=== PATIENT | female | born 1970 | race Caucasian/White ===

== ENCOUNTER → 2021-01-13 11:10 | Outpatient (BNVA) | payer MEDICAID, SELFPAY | PROVIDERS: Visit Provider Obstetrics & Gynecology | DX: R68.82 Decreased libido (principal) | CPT/HCPCS: 84402 ==

== ENCOUNTER → 2021-01-22 00:01 | Outpatient (BNVA) | payer MEDICAID, SELFPAY | PROVIDERS: Visit Provider Obstetrics & Gynecology | DX: R68.82 Decreased libido (principal) | CPT/HCPCS: 84403 ==

== ENCOUNTER 2021-03-03 14:50 | Outpatient (CLI) | payer MEDICAID, SELFPAY ==
--- NOTE | 2021-03-03 14:55 | MM_ITS ---
WS: [id number] BILATERAL SCREENING DIGITAL MAMMOGRAM WITH CAD HISTORY: SCREENING COMPARISON: 12/01/2015 Bilateral CC and MLO views submitted. Computer aided detection analyzed. Breast composition: There are scattered areas of fibroglandular density. No suspicious masses, microc alcifications or architectural distortion. Vascular calcifications in each breast. MM/[place] [id number] IMPRESSION: BI-RADS: 2-Benign FOLLOW UP: 1 Year Follow-up
== END 2021-03-03 14:51 | disposition home or self-care (01) ==
LOC: RADSHAW 14:52
PROVIDERS: PCP Nurse Practitioner Family; Visit Provider Nurse Practitioner Family
DX: Z12.31 Encounter for screening mammogram for malignant neoplasm of breast (principal)
CPT/HCPCS: 77067

== ENCOUNTER → 2021-05-12 09:09 | Outpatient (BNVA) | payer MEDICAID, SELFPAY | PROVIDERS: PCP Nurse Practitioner Family; Referring Provider Nurse Practitioner Family; Visit Provider Podiatrist Foot & Ankle Surgery | DX: M79.672 Pain in left foot (principal); M19.072 Primary osteoarthritis, left ankle and foot; E11.42 Type 2 diabetes mellitus with diabetic polyneuropathy | CPT/HCPCS: 73630 ==

== ENCOUNTER 2021-07-30 14:31 | Emergency (ER) | payer MEDICAID, SELFPAY ==
[2021-07-30 14:46] VITALS: BP 169/105; PULSE 99; RESP 16; TEMP 36.8; O2SAT 97
--- NOTE | 2021-07-30 14:50 | XR_ITS ---
WS: [id number] Portable AP upright chest, 07/30/2021 Clinical Data: chest pain Comparison: None. Findings: No nodules, masses or effusions are seen. The heart is normal. The pulmonary vascularity is not increased. No pneumonia or pneumothorax is seen. XR/XR chest 1V portable [id number] Impression: Negative chest.
--- NOTE | 2021-07-30 14:51 | ECG_ITS ---
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 Measurements Intervals [place] Rate: 94 P: 47 [place]: 142 QRS: -45 QRSD: 93 T: 41 QT: 334 QTc: 418 Interpretive Statements SINUS RHYTHM LOW QRS VOLTAGE IN PRECORDIAL LEADS [QRS DEFLECTION < 1.0 mV IN CHEST LEADS] INCOMPLETE RIGHT BUNDLE BRANCH BLOCK [90+ ms QRS DURATION, TERMINAL R IN V1/V2, 40+ ms S IN I/aVL/V4/V5/V6] INFERIOR MYOCARDIAL INFARCTION , PROBABLY OLD [40+ ms Q WAVE AND/OR ST/T ABNORMALITY IN II/aVF] PROBABLE ANTEROLATERAL MYOCARDIAL INFARCTION , PROBABLY OLD [35 ms Q WAVE IN I/aVL/V3-V6] INTERPRETATION BASED ON A DEFAULT AGE OF 40 YEARS No previous ECG available for comparison Electronically Signed On 07-30-2021 17:07:19 CDT by Ehsan Levin M.D. [email or web address], [id number] atilio
--- NOTE | 2021-07-30 15:05 | W.ED.CHESTPA ---
Documented by User: ISAEL Rowan 07/30/21 16:52 HPI - Chest Pain General: Chief Complaint: Chest Pain Stated Complaint: CP, PAIN IN JAW/BACK, SOB Time Seen by Provider: 07/30/21 14:50 Source: patient Mode of arrival: ambulatory Limitations: no limitations History of Present Illness: HPI narrative: Patient is a pleasant 51-year-old female who presents to ED today with complaints of progressively worsening exertional chest pain and shortness of breath. Patient states she began noticing symptoms approximately 2 to 3 months ago. She was seen by primary care and given a prescription for nitroglycerin and scheduled for a stress test however this has not been completed. Patient tells me her symptoms are continuing to worsen to the point where she is having to stop and rest just with checking the mail. She tells me when she begins having symptoms they are only alleviated by taking nitroglycerin. She states symptoms are almost always brought on by exertion. She states pain is substernal with radiation into her left shoulder, arm, back, and left neck/jaw. 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 She is complaining of lower leg swelling. She complains of orthopnea and PND. Patient states she has had a stress test and angiogram years and years ago which showed 2 leaky valves . She reports no previous history of ID/cardiac stenting. She has no history of COPD. Patient is a former smoker-quit in 1989. complaint: chest pain Onset (ago): month(s) Timing of current episode: episodic and increasing Prior episodes: Yes Onset: during exertion Pain location: substernal Pain radiation: left arm, back, neck, jaw/teeth and left shoulder Quality: tightness Relieving factors: nitroglycerin Exacerbating factors: exertion Associated symptoms: Reports dyspnea and palpitations; Deny abdominal pain, fever(s), nausea, syncope or vomiting Risk Factors: Coronary artery disease risk factors: smoking history (quit 30 years ago) and hypertension Pulmonary embolism risk factors: oral contracepetive use (patient is on conjugated estrogens for decreased libido ) Review of Systems Const: Denies: fever(s), chills, body aches, fatigue or malaise Eyes: Denies: change in vision Card: Reports: chest pain, palpitations, edema, swelling of feet/ankles, dyspnea on exertion and orthopnea; Denies: irregular heart rhythm, lightheadedness, syncope, pre-syncope, leg pain with exertion or acrocyanosis Resp: Reports: dyspnea; Denies: productive cough, non-productive cough, wheezing, hemoptysis or chest congestion GI: Denies: abdominal pain, nausea, vomiting or diarrhea Musc: Denies: neck pain, back pain, extremity pain or joint pain Skin/Breast: Denies: rash Neuro: Denies: headache(s), numbness in extremities, weakness in extremities, sensory changes, difficulty walking or dizziness PFS ED PFSH: Medical History DM (diabetes mellitus) Primary osteoarthritis of left knee Family History Father Alcohol abuse age 55-- Sister Breast cancer x2 Diabetes type 1 Grandmother Breast cancer Maternal Family/Other Breast cancer x2 maternal aunts Brother Diabetes Father Hyperlipidemia Hypertension Mother Hypotension Denies family history of CAD (coronary artery disease) Clotting disorder Dementia Psychiatric illness Chronic kidney disease (CKD) Suicide Anesthesia complication Bleeding disorder Family history of premature coronary artery disease Lung disease Cancer Stroke Social History Smoking and tobacco status: former smoker (quit in 1989) Alcohol intake: never Physical Exam Const: COMMON NORMALS: no acute distress, patient oriented x3, no limitations and alert GENERAL APPEARANCE: cooperative NUTRITIONAL APPEARANCE: overweight ORIENTATION/CONSCIOUSNESS: Yes awake, Yes oriented to person, Yes oriented to place and Yes oriented to time HENMT: COMMON NORMALS: normocephalic and atraumatic HEAD & SCALP: normocephalic and atraumatic Neck/C-Spine: COMMON NORMALS: full ROM Chest: COMMONS NORMALS: normal inspection of the chest and normal palpation of entire chest wall Resp: COMMON NORMALS: normal respiratory effort and clear to auscultation bilaterally AUSCULTATION: clear to auscultation bilaterally Cardio: COMMON NORMALS: regular rate and regular rhythm RATE: regular rate RHYTHM: regular rhythm Extremity: NARRATIVE EXTREMITY EXAM: mild non-pitting LE edema; no calf swelling or obvious tenderness/negative Roro's GENERAL: Yes normal exam except as noted Neuro: COMMON NORMALS: patient oriented x3 SENSORIUM/ORIENTATION: Yes alert, Yes oriented to person, Yes oriented to place and Yes oriented to time Skin: COMMON NORMALS: no rashes or lesions noted GENERAL SKIN EXAM: no rashes or lesions noted Course Consultations: Consultation #1: Dr. Smith-accepts admission Vital Signs: Vital signs: Vital Signs Temperature 98.2 F 07/30/21 14:46 Pulse Rate 99 07/30/21 14:46 Respiratory Rate 16 07/30/21 14:46 Blood Pressure 169/105 07/30/21 14:46 Pulse Oximetry 97 07/30/21 14:46 MDM - Chest Pain MDM Narrative: Medical decision making narrative: Patient's history is highly suspicious. Her baseline trop is normal. EKG w/o obvious ischemic changes. BNP normal. CXR normal. Did order d-dimer secondray to profound SOB with minimal exertion and this was elevated so CTA obtained which was normal. Due to patient's progressively worsening symptoms and the high suspicion, I think hospitalization is appropriate. Spoke to Dr. Vergara who agrees. I spoke with Dr. Smith who will admit. Lab Data: Labs: Lab Results 07/30/21 07/30/21 07/30/21 15:10 15:10 15:10 WBC 10.9 10^3/uL H 10 ^3/uL (4.0-10.0) RBC 4.78 10^6/uL 10^6 /uL (4.1-5.3) Hgb 13.9 g/dL g/dL (11.5-15.3) Hct 41.5 % % (37.0-47.0) MCV 86.8 fl fl (81-99) MCH 29.1 pg pg (28.0-34.0) MCHC 33.5 g/dL g/dL (30.0-36.0) RDW 12.8 % % (12.1-15.1) Plt Count 286 10^3/cmm 10^3 /cmm (130-400) MPV 11.3 fL H fL (7.4-10.4) Neut % (Auto) 60.1 % % Lymph % (Auto) 27.8 % % [place] % (Auto) 9.3 % % Eos % (Auto) 1.7 % % Baso % (Auto) 0.7 % % Neut # (Auto) 6.52 10^3/uL 10^3 /uL (1.8-7.7) Lymph # (Auto) 3.0 10^3/uL 10^3/ uL (0.8-4.8) [place] # (Auto) 1.0 10^3/uL H 10^ 3/uL (0.2-0.9) Eos # (Auto) 0.2 10^3/uL 10^3/ uL (0.0-0.8) Baso # (Auto) 0.1 10^3/uL 10^3/ uL (0.0-0.1) Nucleated RBC % (a uto) 0 % % Nucleated RBCs # 0.0 /100WBC /100W BC D-Dimer Sodium 138 mmol/L mmol/L (136-145) Potassium 3.9 mmol/L mmol/L (3.5-5.1) Chloride 103 mmol/L mmol/L (98-107) Carbon Dioxide 22 mmol/L mmol/L (22-29) Anion Gap 16.9 (5-19) BUN 10 mg/dL mg/dL (6-20) Creatinine 0.5 mg/dL mg/dL (0.5-0.9) GFR Calculation 131.1 mL/min H mL /min (90-130) Glucose 117 mg/dL H mg/dL (65-115) Calculated Osmolal ity 286 mOsm/kg mOsm/ kg (285-295) Calcium 9.1 mg/dL mg/dL (8.5-10.5) Total Bilirubin 0.5 mg/dL mg/dL (0.15-1.2) AST 26 U/L U/L (0-32) ALT 37 U/L H U/L (0-33) Alkaline Phosphata se 162 IU/L H IU/L (35-105) Troponin T Baselin e 8 ng/L ng/L (0-10) NT-Pro-B Natriuret Pep 18 pg/mL pg/mL (0-125) Total Protein 6.8 g/dL g/dL (6.6-8.7) Albumin 4.3 g/dL g/dL (3.5-5.2) Globulin 2.5 g/dL g/dL (1.3-4.6) 07/30/21 15:10 WBC RBC Hgb Hct MCV MCH MCHC RDW Plt Count MPV Neut % (Auto) Lymph % (Auto) [place] % (Auto) Eos % (Auto) Baso % (Auto) Neut # (Auto) Lymph # (Auto) [place] # (Auto) Eos # (Auto) Baso # (Auto) Nucleated RBC % (a uto) Nucleated RBCs # D-Dimer 0.92 ug/mIFEU H u g/mIFEU (0-0.59) Sodium Potassium Chloride Carbon Dioxide Anion Gap BUN Creatinine GFR Calculation Glucose Calculated Osmolal ity Calcium Total Bilirubin AST ALT Alkaline Phosphata se Troponin T Baselin e NT-Pro-B Natriuret Pep Total Protein Albumin Globulin Imaging Data^: CXR: Radiologist's impression: [facility] [address] [place] [id number] XRay Report Signed Patient: Daryl Freeman Unit #: [id number] : 1970 Age/Sex: 51 / F ADM Date: 07/30/21 Loc: ER Room/Bed: Attending Dr: Ordering Provider/Ordering MD: Mariya Solorzano Date of Service: 07/30/21 Procedure(s): XR chest 1V portable [id number] Accession Number(s): [id number] Report Number: [id number] WS: [id number] Portable AP upright chest, 07/30/2021 Clinical Data: chest pain Comparison: None. Findings: No nodules, masses or effusions are seen. The heart is normal. The pulmonary vascularity is not increased. No pneumonia or pneumothorax is seen. XR/XR chest 1V portable [id number] Impression: Negative chest. Dictated By: Claudia Kelsey MD Signed By: Claudia Kelsey MD Signed Date/Time: 07/30/21 1508 DD/ 1507 CTA Chest: Radiologist's impression: [facility] [address] [place] [id number] Scan Report Signed Patient: Daryl Freeman Unit #: [id number] : 1970 Age/Sex: 51 / F ADM Date: 07/30/21 Loc: ER Room/Bed: Attending Dr: Ordering Provider/Ordering MD: Mariya Solorzano Date of Service: 07/30/21 Procedure(s): CT angio chest PE protcl [id number] Accession Number(s): [id number] Report Number: [id number] PROCEDURE INFORMATION: Exam: CTA Chest With Contrast Exam date and time: 07/30/2021 3:49 PM Age: 51 years old Clinical indication: Pain and abnormal findings; Abnormal diagnostic tests; Elevated d-dimer; Shortness of breath; Chest pressure; Additional info: SOB w/ exertion; Elevated d dimer TECHNIQUE: Imaging protocol: Computed tomographic angiography of the chest with contrast. 3D rendering (Not supervised by radiologist): MIP and/or 3D reconstructed images were created by the technologist. Radiation optimization: All CT scans at this facility use at least one of these dose optimization techniques: automated exposure control; mA and/or kV adjustment per patient size (includes targeted exams where dose is matched to clinical indication); or iterative reconstruction. Contrast material: OMNI 350; Contrast volume: 68 ml; Contrast route: INTRAVENOUS (IV); COMPARISON: CR XR chest 1V portable [id number] 07/30/2021 3:05 PM RADIATION DOSE METRICS: Total DLP (mGy-cm): 556.26 FINDINGS: Pulmonary arteries: Normal. No pulmonary emboli. Aorta: Unremarkable. No aortic aneurysm. No aortic dissection. Lungs: Unremarkable. No consolidation. No masses. Pleural spaces: Unremarkable. No pneumothorax. No pleural effusion. Heart: Unremarkable. No cardiomegaly. No pericardial effusion. Lymph nodes: Unremarkable. No enlarged lymph nodes. Liver: Hepatic steatosis. Gallbladder and bile ducts: Cholecystectomy Kidneys and ureters: Left kidney nonobstructing renal calyceal stone Bones/joints: Unremarkable. No acute fracture. Soft tissues: Unremarkable. CT/CT angio chest PE protcl [id number] IMPRESSION: 1. Negative for pulmonary embolus or airspace infiltrate 2. Hepatic steatosis. 3. Left kidney nonobstructing renal calyceal stone 4. Cholecystectomy Radiation Dose CTDIVOL = (mGy): DLP = 556.26 (mGy-cm) Dictated By: Luisito Brand MD Signed By: Luisito Brand MD Signed Date/Time: 07/30/21 1621 DD/ 1549 EKG Data^: EKG 1: EKG interpretation date: 07/30/21 EKG interpretation time: 15:27 Interpretation: Sinus rhythm Rate [address] elevation or depression changes noted Discharge Plan Discharge Patient Disposition: Left Against Medical Advice Clinical Impression: Chest pain Qualifiers: Chest pain type: unspecified Qualified Code(s): R07.9 - Chest pain, unspecified Condition: Stable Discharge Orders: Discharge ED (Routine); Ordered 07/30/21 Ordered By: Storm Vergara Coding Level of Care Code ED Information Security Specialist for Chg Fwd Exam Comprehensive Documented by User: Storm Vergara MD 07/30/21 18:26 HPI - Chest Pain General: Chief Complaint: Chest Pain Stated Complaint: CP, PAIN IN JAW/BACK, SOB Time Seen by Provider: 07/30/21 14:50 PFSH ED PFSH: Medical History DM (diabetes mellitus) Primary osteoarthritis of left knee Family History Father Alcohol abuse age 55-- Sister Breast cancer x2 Diabetes type 1 Grandmother Breast cancer Maternal Family/Other Breast cancer x2 maternal aunts Brother Diabetes Father Hyperlipidemia Hypertension Mother Hypotension Denies family history of CAD (coronary artery disease) Clotting disorder Dementia Psychiatric illness Chronic kidney disease (CKD) Suicide Anesthesia complication Bleeding disorder Family history of premature coronary artery disease Lung disease Cancer Stroke Social History Smoking and tobacco status: former smoker (quit in 1989) Alcohol intake: never Course Vital Signs: Vital signs: Vital Signs Temperature 98.2 F 07/30/21 14:46 Pulse Rate 99 07/30/21 14:46 Respiratory Rate 16 07/30/21 14:46 Blood Pressure 169/105 07/30/21 14:46 Pulse Oximetry 97 07/30/21 14:46 MDM - Chest Pain MDM Narrative: Medical decision making narrative: Around 6:25 PM, patient tells me that she would like to go home at this time, citing concerns for her animals at home as well as the fact that her is legally blind and cannot take care of himself at home. I have discussed the risk of leaving AGAINST MEDICAL ADVICE today including possible lethal arrhythmia, acute ID, and even . Patient verbalized understanding of all these risks and still elects to leave AGAINST MEDICAL ADVICE. I have offered patient urgent cardiology follow-up. Patient reassures me that he will follow-up with cardiology. I have given patient follow up with our vocational case manager to be seen by our outpatient Cardiology for exertional chest pain given incomplete workup today. Patient aware of a call from our vocational case manager to schedule for appointment(s) and verbalizes understanding of the importance of following up. Lab Data: Labs: Lab Results 07/30/21 07/30/21 07/30/21 15:10 15:10 15:10 WBC 10.9 10^3/uL H 10 ^3/uL (4.0-10.0) RBC 4.78 10^6/uL 10^6 /uL (4.1-5.3) Hgb 13.9 g/dL g/dL (11.5-15.3) Hct 41.5 % % (37.0-47.0) MCV 86.8 fl fl (81-99) MCH 29.1 pg pg (28.0-34.0) MCHC 33.5 g/dL g/dL (30.0-36.0) RDW 12.8 % % (12.1-15.1) Plt Count 286 10^3/cmm 10^3 /cmm (130-400) MPV 11.3 fL H fL (7.4-10.4) Neut % (Auto) 60.1 % % Lymph % (Auto) 27.8 % % [place] % (Auto) 9.3 % % Eos % (Auto) 1.7 % % Baso % (Auto) 0.7 % % Neut # (Auto) 6.52 10^3/uL 10^3 /uL (1.8-7.7) Lymph # (Auto) 3.0 10^3/uL 10^3/ uL (0.8-4.8) [place] # (Auto) 1.0 10^3/uL H 10^ 3/uL (0.2-0.9) Eos # (Auto) 0.2 10^3/uL 10^3/ uL (0.0-0.8) Baso # (Auto) 0.1 10^3/uL 10^3/ uL (0.0-0.1) Nucleated RBC % (a uto) 0 % % Nucleated RBCs # 0.0 /100WBC /100W BC D-Dimer Sodium 138 mmol/L mmol/L (136-145) Potassium 3.9 mmol/L mmol/L (3.5-5.1) Chloride 103 mmol/L mmol/L (98-107) Carbon Dioxide 22 mmol/L mmol/L (22-29) Anion Gap 16.9 (5-19) BUN 10 mg/dL mg/dL (6-20) Creatinine 0.5 mg/dL mg/dL (0.5-0.9) GFR Calculation 131.1 mL/min H mL /min (90-130) Glucose 117 mg/dL H mg/dL (65-115) Calculated Osmolal ity 286 mOsm/kg mOsm/ kg (285-295) Calcium 9.1 mg/dL mg/dL (8.5-10.5) Total Bilirubin 0.5 mg/dL mg/dL (0.15-1.2) AST 26 U/L U/L (0-32) ALT 37 U/L H U/L (0-33) Alkaline Phosphata se 162 IU/L H IU/L (35-105) Troponin T Baselin e 8 ng/L ng/L (0-10) NT-Pro-B Natriuret Pep 18 pg/mL pg/mL (0-125) Total Protein 6.8 g/dL g/dL (6.6-8.7) Albumin 4.3 g/dL g/dL (3.5-5.2) Globulin 2.5 g/dL g/dL (1.3-4.6) 07/30/21 15:10 WBC RBC Hgb Hct MCV MCH MCHC RDW Plt Count MPV Neut % (Auto) Lymph % (Auto) [place] % (Auto) Eos % (Auto) Baso % (Auto) Neut # (Auto) Lymph # (Auto) [place] # (Auto) Eos # (Auto) Baso # (Auto) Nucleated RBC % (a uto) Nucleated RBCs # D-Dimer 0.92 ug/mIFEU H u g/mIFEU (0-0.59) Sodium Potassium Chloride Carbon Dioxide Anion Gap BUN Creatinine GFR Calculation Glucose Calculated Osmolal ity Calcium Total Bilirubin AST ALT Alkaline Phosphata se Troponin T Baselin e NT-Pro-B Natriuret Pep Total Protein Albumin Globulin Discharge Plan Discharge Patient Disposition: Left Against Medical Advice Clinical Impression: Chest pain Qualifiers: Chest pain type: unspecified Qualified Code(s): R07.9 - Chest pain, unspecified Condition: Stable Discharge Orders: Discharge ED (Routine); Ordered 07/30/21 Ordered By: Storm Vergara Coding Level of Care Code ED Information Security Specialist for [place] Fwd Exam Comprehensive
[2021-07-30 15:26] LABS: Basophils # 0.1 10^3/uL (0.0-0.1); Basophils % 0.7 %; Eosinophils # 0.2 10^3/uL (0.0-0.8); Eosinophils % 1.7 %; Hematocrit 41.5 % (37.0-47.0); Hemoglobin 13.9 g/dL (11.5-15.3); Lymphocytes % 27.8 %; Mean Corpuscular HGB Conc 33.5 g/dL (30.0-36.0); Mean Corpuscular Hemoglobin 29.1 pg (28.0-34.0); Mean Corpuscular Volume 86.8 fl (81-99); Mean Platelet Volume 11.3 fL (7.4-10.4); Monocytes % 9.3 %; Neutrophils # 6.52 10^3/uL (1.8-7.7); Neutrophils % 60.1 %; Nucleated Red Blood Cells % 0 %; Platelet Count 286 10^3/cmm (130-400); Red Blood Count 4.78 10^6/uL (4.1-5.3); Red Cell Distribution Width 12.8 % (12.1-15.1); White Blood Count 10.9 10^3/uL (4.0-10.0)
[2021-07-30 15:45] LABS: D Dimer 0.92 ug/mIFEU (0-0.59)
--- NOTE | 2021-07-30 15:49 | CTR_ITS ---
PROCEDURE INFORMATION: Exam: CTA Chest With Contrast Exam date and time: 07/30/2021 3:49 PM Age: 51 years old Clinical indication: Pain and abnormal findings; Abnormal diagnostic tests; Elevated d-dimer; Shortness of breath; Chest pressure; Additional info: SOB w/ exertion; Elevated d dimer TECHNIQUE: Imaging protocol: Computed tomographic angiography of the chest with contrast. 3D rendering (Not supervised by radiologist): MIP and/or 3D reconstructed images were created by the technologist. Radiation optimization: All CT scans at this facility use at least one of these dose optimization techniques: automated exposure control; mA and/or kV adjustment per patient size (includes targeted exams where dose is matched to clinical indication); or iterative reconstruction. Contrast material: OMNI 350; Contrast volume: 68 ml; Contrast route: INTRAVENOUS (IV); COMPARISON: CR XR chest 1V portable [id number] 07/30/2021 3:05 PM RADIATION DOSE METRICS: Total DLP (mGy-cm): 556.26 FINDINGS: Pulmonary arteries: Normal. No pulmonary emboli. Aorta: Unremarkable. No aortic aneurysm. No aortic dissection. Lungs: Unremarkable. No consolidation. No masses. Pleural spaces: Unremarkable. No pneumothorax. No pleural effusion. Heart: Unremarkable. No cardiomegaly. No pericardial effusion. Lymph nodes: Unremarkable. No enlarged lymph nodes. Liver: Hepatic steatosis. Gallbladder and bile ducts: Cholecystectomy Kidneys and ureters: Left kidney nonobstructing renal calyceal stone Bones/joints: Unremarkable. No acute fracture. Soft tissues: Unremarkable. CT/CT angio chest PE protcl [id number] IMPRESSION: 1. Negative for pulmonary embolus or airspace infiltrate 2. Hepatic steatosis. 3. Left kidney nonobstructing renal calyceal stone 4. Cholecystectomy Radiation Dose CTDIVOL = (mGy): DLP = 556.26 (mGy-cm)
[2021-07-30] MEDS: iohexol 350 mg/mL 100 mL Btl IV (16:03)
[2021-07-30 16:05] LABS: Troponin(5th) Baseline 8 ng/L (0-10)
[2021-07-30 16:14] LABS: Alanine Aminotransferase 37 U/L (0-33); Albumin Level 4.3 g/dL (3.5-5.2); Alkaline Phosphatase 162 IU/L (35-105); Anion Gap 16.9 (5-19); Aspartate Amino Transferase 26 U/L (0-32); Blood Urea Nitrogen 10 mg/dL (6-20); Calcium 9.1 mg/dL (8.5-10.5); Carbon Dioxide 22 mmol/L (22-29); Chloride 103 mmol/L (98-107); Creatinine Clr Calc Pharmacy 148.0952; Globulin 2.5 g/dL (1.3-4.6); Glomerular Filtration Rate 131.1 mL/min (90-130); Glucose 117 mg/dL (65-115); NT Pro B Type Natriuretic Pept 18 pg/mL (0-125); Osmolality Calculated 286 mOsm/kg (285-295); Potassium 3.9 mmol/L (3.5-5.1); Sodium 138 mmol/L (136-145); Total Bilirubin 0.5 mg/dL (0.15-1.2); Total Protein 6.8 g/dL (6.6-8.7)
--- NOTE | 2021-07-30 16:51 | ECG_ITS ---
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 Measurements Intervals [place] Rate: 80 P: 46 [place]: 152 QRS: -11 QRSD: 89 T: 52 QT: 357 QTc: 413 Interpretive Statements SINUS RHYTHM LOW QRS VOLTAGE IN PRECORDIAL LEADS [QRS DEFLECTION < 1.0 mV IN CHEST LEADS] POSSIBLE RIGHT VENTRICULAR CONDUCTION DELAY [RSR (QR) IN V1/V2] Compared to ECG 07/30/2021 14:44:24 Incomplete right bundle-branch block no longer present Myocardial infarct finding no longer present Electronically Signed On 07-30-2021 17:13:20 CDT by Ehsan Levin M.D. [email or web address] [email or web address]/NU/[id number]
--- NOTE | 2021-07-30 17:22 | PM.HP ---
Providers/Chief Complaint Primary Care Provider: JADEN Song Chief Complaint: CP, PAIN IN JAW/BACK, SOB History of Present Illness 81-year-old with past medical history of prostate cancer s/p retropubic prostatectomy,post op dvt, GI bleed on coumadin, hypertension, dyslipidemia and chronic stage 3 kidney disease (baseline around 1.7) who presented to ER with left sided weakness. Initial symptoms were noted around 2 pm during which time patient was also noted to have diplopia as well as expressive aphasia. Symptoms gradually improved. No reported history of prior strokes. No fever, chills, nausea or vomiting. NIH of 2 was noted on arrival. Laboratory work up showed a WBC of 4.7, hemoglobin of 12.0, hematocrit of 35.6 and a platelet count of 221. INR of 0.94. Sodium of 139, potassium of 3.7, chloride of 104, bicarb of 24, BUN of 34, and a creatinine of 1.3. UA and urinary drug screen is negative. Head CT did not show any evidence of intracranial hemorrhage or mass effect. CTA head and neck did not show any evidence of any acute aneurysm or stenosis. Admitted for further work up. Review of Systems General: Reports: 10 or more systems reviewed and unremarkable except in HPI and below Medications/Allergies Home Medications Medication Instructions Recorded Confirmed Last Taken Type acetaminophen 500 mg tablet 500 mg PO Q6H PRN 11/01/19 05/12/21 Unknown History ibuprofen 200 mg tablet 200 mg PO Q6H PRN 11/01/19 05/12/21 Unknown History amitriptyline 25 mg tablet 25 mg PO DAILY 01/13/21 05/12/21 Unknown History citalopram 20 mg tablet 20 mg PO DAILY 01/13/21 05/12/21 Unknown History desvenlafaxine succinate 50 mg 50 mg PO DAILY 01/13/21 05/12/21 Unknown History tablet,extended release 24 hr epinephrine 0.3 mg/0.3 mL 0.3 mg IM Q10M PRN 01/13/21 05/12/21 Unknown History injection, auto-injector lisinopril 20 1 tab PO DAILY 01/13/21 05/12/21 Unknown History mg-hydrochlorothiazide 25 mg tablet omeprazole magnesium 20 mg 20 mg PO DAILY 01/13/21 05/12/21 Unknown History capsule,delayed release promethazine 25 mg tablet 25 mg PO BID PRN tab 01/13/21 05/12/21 Unknown History quetiapine 25 mg tablet 25 mg PO DAILY 01/13/21 05/12/21 Unknown History conjugated estrogens 0.625 mg/gram 0.3125 mg VAGINAL DAILY #30 g 02/09/21 05/12/21 Unknown Rx vaginal cream methocarbamol 750 mg tablet 750 mg PO QID #60 tab 02/09/21 05/12/21 Unknown Rx nitroglycerin 400 mcg/spray 1 spray TRANSLINGUAL Q5M PRN 02/09/21 05/12/21 Unknown History translingual custom molded orthotics #1 ea 05/12/21 05/12/21 Unknown Rx Allergies Allergy/AdvReac Type Severity Reaction Status Date / Time venom-wasp Allergy Severe anaphylactic Verified 05/05/21 11:14 shock/swelling adhesive tape Allergy rash Verified 05/05/21 11:14 milk Allergy makes her Verified 05/05/21 11:14 sick PFSH Acute PFSH: Medical History (Updated 07/30/21 @ 19:09 by Medardo Smith MD) Depression DM (diabetes mellitus) GERD (gastroesophageal reflux disease) HTN (hypertension) Primary osteoarthritis of left knee Type 2 diabetes mellitus Family History Father Alcohol abuse age 55-- Sister Breast cancer x2 Diabetes type 1 Grandmother Breast cancer Maternal Family/Other Breast cancer x2 maternal aunts Brother Diabetes Father Hyperlipidemia Hypertension Mother Hypotension Denies family history of CAD (coronary artery disease) Clotting disorder Dementia Psychiatric illness Chronic kidney disease (CKD) Suicide Anesthesia complication Bleeding disorder Family history of premature coronary artery disease Lung disease Cancer Stroke Social History Smoking and tobacco status: former smoker (quit in 1989) Alcohol intake: never Vitals/I&O/Wt Last Vital Signs Temp 98.2 F 07/30/21 14:46 Pulse 99 07/30/21 14:46 Resp 16 07/30/21 14:46 BP 169/105 07/30/21 14:46 Pulse Ox 97 07/30/21 14:46 Weight last 48 hrs Weight 90.265 kg Physical Exam Narrative: EXAM NARRATIVE: General : alert, awake and oriented x 3 HEENT: Grossly unremarkable CVS; NSR Chest; Non labored respiration Abd: Soft Ext No edema Data : 07/30/21 15:10 07/30/21 15:10 A&P Assessment and plan (1) Acute CVA (cerebrovascular accident): NIH of [address] neg CTA - Head and neck - negative. MRI in am Asa 81 mg po daily Statin Neurochecks Npo until speech eval Lipid panel and a1c in am Allow permissive HTN - tx BP if SBP > 220 or DBP > 120 Hold antihypertensives Status: Acute Attestations Medical Necessity Statement*: Anticiparte less than 2 midnight stay in hospital for work up Time Spent in Patient Care: Greater than 35 minutes (>than 50% of time spent in counselling and/or direct pt care on unit). Coding Level of Care Code Acute Train Control Technician for Edison Gilliam Diagnoses Acute CVA (cerebrovascular accident) I63.9
[2021-07-30 17:48] LABS: Troponin 5 2HR 7.31 ng/L (0-10); Troponin 5 2HR Delta -0.69 ABS# (0-10)
--- NOTE | 2021-07-30 18:39 | PC.NURSE ---
Pt requesting to leave AMA, Dr. Vergara advised and went in to talk with pt. Pt signed AMA paperwork. Initialized on 07/30/21 18:29 - END OF NOTE
--- NOTE | 2021-07-30 18:40 | PC.NURSE ---
Pt arrived via POV from her PCP, pt has been having intermittent chest pain since May. Pt denies any pain, no N/V, just doing what my doctor told me to do . Pt A/O x4, vs taken, pt placed on monitor. Initialized on 07/30/21 18:09 - END OF NOTE
--- NOTE | 2021-07-31 09:42 | DCPLANNER ---
Addendum entered by Gin Albarado 10/17/21 12:24: Patient had a follow up appointment scheduled with [facility] - patient did attend appointment. Original Note: senior payroll manager had message to schedule a follow up appointment for patient with [facility]. senior payroll manager called [facility], spoke with Brandie, gave clinic patients information. A follow up appointment was scheduled for Tuesday, August 17, 2021 at 10:[address] Shaffer. senior payroll manager called phone number [phone], unable to speak with patient at this time, a voicemail was left for patient to return showcase trimmer phone call.
== END 2021-07-30 18:42 | disposition left against medical advice (07) ==
LOC: ER 16:41 → CSU 18:23
PROVIDERS: Physician Assistant; Emergency Provider Emergency Medicine; PCP Nurse Practitioner Family
DX: R07.9 Chest pain, unspecified (principal); Z53.29 Procedure and treatment not carried out because of patient's decision for other reasons
CPT/HCPCS: 71045; 71275; 80053; 83880; 84484; 85025; 85378; 93005; 99283; 99291; Q9967

== ENCOUNTER 2021-08-27 09:10 | Outpatient (CLI) | payer MEDICAID, SELFPAY ==
[2021-08-27 09:30] VITALS: BMI 34.0
--- NOTE | 2021-08-27 09:47 | ECG_ITS ---
[facility] Test Date: 2021-08-27 Pat Name: Daryl Freeman Department: Room: Gender: Female Postal Delivery Officer: Charmaine Landin : 1970 Requested By: Claudia Escoto Order Number: [id number] Jann MD: Sonja Garcia M.D. Interpretive Statements NAME OF STUDY: LEXISCAN SESTAMIBI STRESS TEST INDICATION: Chest Pain PROCEDURE: At the baseline, the blood pressure was 138/84 mmHg, oxygen saturation 95% with a heart rate of 65 bpm. The electrocardiogram showed normal sinus rhythm, normal axis with normal ST and T's. The Lexiscan was infused over a period of 20 seconds. A total of 0.4 milligrams of Lexiscan was infused. The stress phase was continued for a total of 5 minutes. Heart rate at the end of the stress phase was 78 bpm, oxygen saturation 96% with a blood pressure of 139/87 mmHg. The EKG at the peak infusion revealed sinus rhythm with no significant ST-T wave changes. Sestamibi was injected 20 seconds after the Lexiscan infusion. Blood pressure at the end of the recovery phase was 140/82 mmHg, oxygen saturation 96% with a heart rate of 72 beats per minute. CONCLUSION: 1. No significant EKG changes with the LexiScan infusion. 2. No LexiScan induced chest pain or cardiac arrhythmia. 3. Normal blood pressure and heart rate response. 4. Sestamibi/sestamibi perfusion scan pending; see separate report. Electronically Signed On 08-28-2021 13:45:04 WOOL CLEANER by Sonja Garcia M.D. [id number]
--- NOTE | 2021-08-27 09:48 | NMCV_ITS ---
NM donald perf SPECT r/s* [id number] Daryl Freeman Age: 51 Gender: F : 1970 Exam Date: 08/27/2021 10:28 Ordering Phys: Claduia Escoto GUEST ROOM ATTENDANT Technologist: LAWRENCE Jones Exam Location: [facility] Indications: CHEST PAIN STRESS TEST Please see separate stress test report in [facility] for full findings IMAGE PROTOCOL Rest/Stress 1 Lexiscan Day Radiopharmaceutical Dose (mCi) Administration Site Administered by Rest: Tc-99m 10.9 IV LAWRENCE Reynoso Sestamibi Stress:Tc-99m 32.7 IV LAWRENCE Jones Sestamibritta Rest: 27-Aug-2021 60 Discovery 630 Stress: 27-Aug-2021 30 Discovery 630 0.4mg Lexiscan. Images obtained in supine and prone position. SPECT RESULTS Technical Quality: Excellent Raw Data Analysis: Normal Image Corrections: No attenuation or motion correction applied Summed Stress Score: 2 Summed Rest Score: 2 Summed Difference Score: 0 PERFUSION FINDINGS SPECT images demonstrate homogeneous tracer distribution throughout the myocardium. FUNCTIONAL RESULTS (calculated via Gated SPECT) Stress Image LV EF (%): 79 Stress EDV (mL):58 TID: 1.14 Stress ESV (mL):12 FUNCTIONAL FINDINGS: The left ventricle is normal in size. Transient Ischemia Dilatation of 1.1. There is normal left ventricular systolic function. The left ventricular ejection fraction is normal with a value of 79%. There is normal left ventricular wall thickening with no regional wall motion abnormality. IMPRESSIONS 1. Myocardial perfusion imaging is normal. 2. Overall left ventricular systolic function is normal without regional wall motion abnormalities. 3. The left ventricular ejection fraction is normal with a value of 79%. 4. No EKG changes with Lexiscan infusion. Please refer to separate report for details. Sonja Garcia MD (Electronically Signed) Final Date: 28 August 2021 13:48 S
[2021-08-27] MEDS: regadenoson 0.4 Mg/5 ml Syringe IVP (11:08)
[2021-08-27 11:21] VITALS: BP 140/82; PULSE 74
== END 2021-08-27 09:11 | disposition home or self-care (01) ==
LOC: CDL 09:11
PROVIDERS: PCP Nurse Practitioner Family; Visit Provider Nurse Practitioner Family
DX: R07.9 Chest pain, unspecified (principal)
CPT/HCPCS: 78452; 93017; A9500; J2785

== ENCOUNTER → 2022-03-30 13:28 | Outpatient (BNVA) | payer MEDICAID, SELFPAY | PROVIDERS: PCP Nurse Practitioner Family; Visit Provider Nurse Practitioner Family | DX: M17.0 Bilateral primary osteoarthritis of knee (principal); M25.561 Pain in right knee; M25.562 Pain in left knee | CPT/HCPCS: 20610; 99213 ==

== ENCOUNTER → 2022-04-13 10:49 | Outpatient (BNVA) | payer MEDICAID, SELFPAY | PROVIDERS: PCP Nurse Practitioner Family; Visit Provider Podiatrist Foot & Ankle Surgery | DX: Q74.2 Other congenital malformations of lower limb(s), including pelvic girdle (principal); E11.42 Type 2 diabetes mellitus with diabetic polyneuropathy; E11.8 Type 2 diabetes mellitus with unspecified complications | CPT/HCPCS: 99213; 99214 ==

== ENCOUNTER 2022-06-10 12:59 | Outpatient (CLI) | payer MEDICAID, SELFPAY ==
--- NOTE | 2022-06-10 13:00 | MR_ITS ---
WS: [id number] INDICATION: Tissue mass tip of the LEFT 2nd toe TECHNIQUE: MRI left foot without and with gadolinium enhancement. Axial T1 and T2 PD and post gadolin ium imaging. Sagittal T1 STIR and post gadolinium imaging. Coronal T1 postgadolinium imaging. FINDINGS: Palpable marker overlying the junction between the 1st and 2nd distal phalanges. Distal 1st toe is normal in appearance. No visualized lesions in the 1st toe. There is a lobulated lesion overl osman the very distal 2nd toe at the edge of the [id number] measuring approximately 6.3 x 5.8 mm. T his demonstrates increased T2 signal normality and small amount of associated enhancement. This is di fficult to further characterize due to location at the edge field of view and size. Recommend conside ration of resection. No definite evidence of underlying bony destruction. This does abut the adjacent distal 2nd phalangeal tuft. Pes planus. Degenerative arthritis at the talonavicular joint with subchondral cystic change. Degener ative arthritis involving the tarsal bones. Distal Achilles appears normal. Degenerative edema involv ing the tarsal metatarsal joint. MR/MR foot LT wo/w con [id number] IMPRESSION: 1. Small enhancing T2 hyperintense soft tissue mass in the area of concern ove rlying the distal 2nd phalangeal tuft protruding medially. No definite evidence of underlying bony destruction. This is difficult to further characterize due to small size and loss of signal strength at the edge [id number]. Consider r esection for further evaluation. 2. Degenerative arthritis as described above. 3. No other acute findings.
[2022-06-10] MEDS: gadobenate dimeglumine 20 mL vial IV (15:15)
== END 2022-06-10 13:00 | disposition home or self-care (01) ==
LOC: RAD 13:01
PROVIDERS: PCP Nurse Practitioner Family; Visit Provider Podiatrist Foot & Ankle Surgery
DX: Q74.2 Other congenital malformations of lower limb(s), including pelvic girdle (principal)
CPT/HCPCS: 73720

== ENCOUNTER → 2022-06-29 13:47 | Outpatient (BNVA) | payer MEDICAID, SELFPAY | PROVIDERS: PCP Nurse Practitioner Family; Visit Provider Nurse Practitioner Family | DX: M17.0 Bilateral primary osteoarthritis of knee (principal) | CPT/HCPCS: 20610; 99213; J1100; J2795; J3301 ==

== ENCOUNTER 2022-09-09 07:52 | Outpatient (CLI) | payer MEDICAID, SELFPAY ==
--- NOTE | 2022-09-09 08:07 | NM_ITS ---
WS: [id number] NUCLEAR MEDICINE BONE SCAN Radiopharmaceutical: 25.1 Tc-99m MDP mCi IV Injection site: antecubital Postinjection imaging delay: 1 hr CLINICAL INFORMATION: ELEVATED ALKALINE PHOSPHATASE LEVEL COMPARISON: None. FINDINGS: Bone lesions: There are no osseous lesions suspicious for metastatic disease. Soft tissue contours: Normal. Kidneys: Normal. Other findings: Degenerative type uptake involving the AC joints, both ankles, and both knees. Degene rative uptake lower lumbar spine. NM/NM bone scan whole body* [id number] IMPRESSION: No evidence of osseous metastatic disease.
== END 2022-09-09 07:53 | disposition home or self-care (01) ==
PROVIDERS: PCP Nurse Practitioner Family; Visit Provider Nurse Practitioner Family
DX: R74.8 Abnormal levels of other serum enzymes (principal)
CPT/HCPCS: 78306; A9561

== ENCOUNTER → 2023-01-04 09:21 | Outpatient (BNVA) | payer MEDICAID, SELFPAY | PROVIDERS: PCP Nurse Practitioner Family; Visit Provider Nurse Practitioner Family | DX: M17.0 Bilateral primary osteoarthritis of knee (principal) | CPT/HCPCS: 20610; 73560; 73565; 99213; J1100; J2795; J3301 ==

== ENCOUNTER → 2023-04-14 09:47 | Outpatient (BNVA) | payer MEDICAID, SELFPAY | PROVIDERS: PCP Nurse Practitioner Family; Visit Provider Nurse Practitioner Family | DX: M17.0 Bilateral primary osteoarthritis of knee (principal) | CPT/HCPCS: 20610; 99213; J1100; J2795; J3301 ==

== ENCOUNTER → 2023-05-10 10:13 | Outpatient (BNVA) | payer MEDICAID, SELFPAY | PROVIDERS: PCP Nurse Practitioner Family; Referring Provider Nurse Practitioner Family; Visit Provider Nurse Practitioner Family | DX: M67.911 Unspecified disorder of synovium and tendon, right shoulder (principal) | CPT/HCPCS: 73030; 99213 ==

== ENCOUNTER → 2023-07-14 08:07 | Outpatient (BNVA) | payer MEDICAID, SELFPAY | PROVIDERS: PCP Nurse Practitioner Family; Referring Provider Nurse Practitioner Family; Visit Provider Psychiatry & Neurology Neurology | DX: G43.909 Migraine, unspecified, not intractable, without status migrainosus (principal) | CPT/HCPCS: 99203 ==

== ENCOUNTER → 2023-12-09 08:57 | Outpatient (BNVA) | payer MEDICAID, SELFPAY | PROVIDERS: PCP Nurse Practitioner Family; Visit Provider Nurse Practitioner | DX: M17.0 Bilateral primary osteoarthritis of knee; M54.16 Radiculopathy, lumbar region; Z71.89 Other specified counseling | CPT/HCPCS: 20610; 99214; J1100; J2795; J3301 ==

== ENCOUNTER → 2025-01-14 10:09 | Outpatient (BNVA) | payer MEDICAID, SELFPAY | PROVIDERS: PCP Nurse Practitioner Family; Visit Provider Nurse Practitioner | DX: M17.0 Bilateral primary osteoarthritis of knee (principal); M54.16 Radiculopathy, lumbar region; Z71.89 Other specified counseling | CPT/HCPCS: 20610; 99214; J1100; J2795; J3301; J9999 ==

== ENCOUNTER → 2025-02-07 08:41 | Outpatient (BNVA) | payer MEDICAID, SELFPAY | PROVIDERS: PCP Nurse Practitioner Family; Visit Provider Orthopaedic Surgery | DX: M54.9 Dorsalgia, unspecified (principal) | CPT/HCPCS: 72110; 99204 ==

== ENCOUNTER 2025-02-27 12:13 | Outpatient (CLI) | payer MEDICAID, SELFPAY ==
--- NOTE | 2025-02-27 12:17 | MR_ITS ---
WS: [id number] MRI BRAIN WITHOUT CONTRAST HISTORY: SLURRED SPEECH COMPARISON: None available. TECHNIQUE: Diffusion imaging, multiplanar T1, T2 and FLAIR imaging obtained. No evidence for acute infarct or hemorrhage. Zendejas-white matter differentiation is normal. No prior infarct. Normal hippocampal formations. Single tiny focus of increased T2 signal in the subcortical RIGHT frontal lobe white matter. No remote or acute infarcts or volume loss. Ventricles and extra-axial spaces are normal. No inferior displacement of cerebellar tonsils. The sella turcica and pituitary gland are unremarkable. Dural venous sinuses and craig of Hernadez demonstrate no abnormality on this unenhanced studies. Paranasal sinuses: Clear. Mastoid air cells: Normal. Calvarium and scalp: Intact. MR/MR head wo con* [id number] IMPRESSION: 1. No acute infarct. No hemorrhage. 2. Normal MRI brain for age. No significant atrophy.
== END 2025-02-27 12:14 | disposition home or self-care (01) ==
LOC: RAD 12:15
PROVIDERS: PCP Nurse Practitioner Family; Visit Provider Nurse Practitioner Family
DX: R47.81 Slurred speech (principal)
CPT/HCPCS: 70551

== ENCOUNTER → 2025-04-09 08:48 | Outpatient (BNVA) | payer MEDICAID, SELFPAY | PROVIDERS: PCP Nurse Practitioner Family; Visit Provider Nurse Practitioner | DX: M17.0 Bilateral primary osteoarthritis of knee (principal); M54.16 Radiculopathy, lumbar region; Z71.89 Other specified counseling | CPT/HCPCS: 20610; 99213; 99214; J1100; J2795; J3301; J9999 ==

== ENCOUNTER → 2025-07-10 08:20 | Outpatient (BNVA) | payer MEDICAID, SELFPAY | PROVIDERS: PCP Nurse Practitioner Family; Visit Provider Nurse Practitioner | DX: M17.0 Bilateral primary osteoarthritis of knee (principal); Z71.89 Other specified counseling | CPT/HCPCS: 20610; J1100; J2795; J3301; J9999 ==